=== PATIENT | male | born 1935 | race Caucasian/White ===

== ENCOUNTER → 2023-02-22 | Outpatient (CLI) | payer MEDICARE | LOC: M RAD 12:25 | PROVIDERS: ATTEND Surgery | DX: I89.0 Lymphedema, not elsewhere classified (principal); R68.89 Other general symptoms and signs; I70.203 Unspecified atherosclerosis of native arteries of extremities, bilateral legs ==

== ENCOUNTER 2024-02-29 08:21 | Day surgery (SDC) | payer MEDICARE ==
[~2024-02-29] VITALS: Ht 172.7 cm; Wt 106.9 kg
[~2024-02-29 08:21] MED LIST: ALEV220T22 PO; AMLO1TAB24 PO; ASPI81CH48 PO; ATIV1TAB10 PO; LEVO88TA3 PO; LEXA1TAB PO; LISI20TA33 PO; MIDAZOLAM INJ 2MG/2ML VIAL As Ordered ONE; OMEP-173 PO; TAMS1CAP17 PO; THERTAB52 PO; TORS20TA2 PO; XARE20TA PO; fentaNYL 100 MCG/2 ML INJECTION As Ordered ONE
[2024-02-29] MEDS ORDERED: LR 1,000 ML IV SCH (09:35)
[2024-02-29] MEDS: LIDOCAINE 3.5 % 1ML OPHTH TOPICAL GEL OU ONE (09:37)
[2024-02-29] MEDS: POVIDONE-IODINE 5% OPHTH PREP SOL 30ML As Ordered ONE (10:29)
[2024-02-29] MEDS: LIDOCAINE 2% W/EPINEPHRINE 20ML VIAL **PRES FREE As Ordered ONE (10:30)
[2024-02-29] MEDS: TOBRADEX OPHTH OINT 3.5 GM As Ordered ONE (10:34)
[2024-02-29 10:55] VITALS: BP 170/94; TEMP 97.6; O2SAT 94
== END 2024-02-29 11:15 | disposition home or self-care (01) ==
LOC: M SDC 08:21
PROVIDERS: ATTEND Ophthalmology
DX: H02.132 Senile ectropion of right lower eyelid (principal); I25.2 Old myocardial infarction; Z95.5 Presence of coronary angioplasty implant and graft; I48.91 Unspecified atrial fibrillation; I10 Essential (primary) hypertension; E78.00 Pure hypercholesterolemia, unspecified; E03.9 Hypothyroidism, unspecified; K21.9 Gastro-esophageal reflux disease without esophagitis; F41.9 Anxiety disorder, unspecified; R60.0 Localized edema; N40.0 Benign prostatic hyperplasia without lower urinary tract symptoms; Z88.8 Allergy status to other drugs, medicaments and biological substances; Z79.899 Other long term (current) drug therapy; Z79.01 Long term (current) use of anticoagulants; Z79.02 Long term (current) use of antithrombotics/antiplatelets; Z79.1 Long term (current) use of non-steroidal anti-inflammatories (NSAID); Z79.890 Hormone replacement therapy
CPT/HCPCS: 67917; J2250; J3010